=== PATIENT | female | born 1995 | race Two or more races ===

== ENCOUNTER 2019-03-12 15:48 | Emergency (ER) | payer SELFPAY ==
[~2019-03-12] VITALS: Ht 162.6 cm; Wt 59.0 kg
[2019-03-12] MEDS ORDERED: LIDOCAINE HCL/EPINEPHRINE 1%-EPI 1:100,000 20 ML VIAL INFIL ONE (17:15)
[2019-03-12] MEDS ORDERED: TETANUS, DIPHTHERIA, PERTUSSIS VAC/PF 0.5ML (>7YR OLD) IM ONE (17:15)
[2019-03-12 18:03] VITALS: BP 105/65
== END 2019-03-12 18:04 | disposition home or self-care (01) ==
LOC: ER 15:48
DX: S51.851A Open bite of right forearm, initial encounter (principal); W54.0XXA Bitten by dog, initial encounter; Y93.89 Activity, other specified; Y92.017 Garden or yard in single-family (private) house as the place of occurrence of the external cause; Z23 Encounter for immunization; R03.0 Elevated blood-pressure reading, without diagnosis of hypertension
CPT/HCPCS: 12001; 90471; 90715; 99283; J3490